=== PATIENT | female | born 1965 | race Caucasian/White ===

== ENCOUNTER 2017-01-11 15:13 | Observation (INO) | payer OTHER ==
--- NOTE | 2017-01-11 16:22 | CPEKG ---
Heart Rate: 42 RR Interval: 1429 P-R Interval: 172 QRSD Interval: 90 QT Interval: 472 QTC Interval: 395 P [place]: 49 QRS [place]: 8 T Wave [place]: 22 EKG Severity - OTHERWISE NORMAL ECG - EKG Impression: SINUS BRADYCARDIA Electronically Signed By: Davonte Mason 11-Jan-2017 23:12:34
--- NOTE | 2017-01-11 16:25 | EDPHY ---
H & P Stated Complaint: pt had a syncopeal episoide with LOC Time Seen by Provider: 01/11/17 16:23 HPI/ROS: CHIEF COMPLAINT: Loss of consciousness HISTORY OF PRESENT ILLNESS: The patient is a 51 y/o female complaining of loss of consciousness and a subsequent fall this afternoon. She had a witnessed syncopal episode in October, where she was unresponsive for about 30 seconds. Today she was at her daughter' s school and lost consciousness for about 5 seconds. She felt thirsty all day and went to get a drink of water; she immediately felt heart palpitations and then became unconscious. She then hit the floor face first and was unable to block her fall. Denies shortness of breath, headache, chest pain, numbness or other pertinent symptoms. She is very active in is actually swung the [employer] channel in 2009. She swims master class several times a week. Normally her heart rate runs low but is never been below 50. REVIEW OF SYSTEMS: A comprehensive 10 point review of systems is otherwise negative aside from elements mentioned in the history of present illness. PMH: Right ACL repair SOCIAL HISTORY: Lives in [place], retired, family at bedside PHYSICAL EXAM: Gen: Awake, Alert, No Distress HEENT: Nose: no rhinorrhea Eyes: Left eye abrasion, PERRLA, EOMI Mouth: Moist mucosa Neck: Supple, no JVD Chest: nontender, lungs clear to auscultation Heart: S1, S2 normal, no murmur Abd: Soft, non-tender, no guarding Back: no CVA tenderness, no midline tenderness Ext: no edema, non-tender Skin: no rash Neuro: CN II-XII intact, Sensation grossly intact, Strength 5/5 in bilateral upper and lower extremities - Personal History LMP (Females 10-55): Post Menopausal Current Tetanus Diphtheria and Acellular Pertussis (TDAP): Yes Tetanus Vaccine Date: 2011 - Medical/Surgical History Hx Asthma: No Hx Chronic Respiratory Disease: No Hx Diabetes: No Hx Cardiac Disease: No Hx Renal Disease: No Hx Cirrhosis: No Hx Alcoholism: No Hx HIV/AIDS: No Hx Splenectomy or Spleen Trauma: No Other PMH: , r acl surgery - Social History Smoking Status: Never smoked Constitutional: Initial Vital Signs Temperature (C) 36.7 C 01/11/17 15:20 Heart Rate 52 L 01/11/17 15:20 Respiratory Rate 20 10/06/17 15:20 Blood Pressure 142/71 H 01/11/17 15:20 O2 Sat (%) 99 01/11/17 15:20 O2 Delivery Mode Room Air Allergies/Adverse Reactions: No Known Allergies Allergy (Unverified 01/11/17 15:20) Home Medications: Medication Instructions Recorded Aspirin [Aspirin 81mg (*)] 81 mg PO HS 01/11/17 Herbals/Supplements -Info Only 1 ea PO DAILY 01/11/17 Multivitamins [Multivitamin (*)] 1 each PO DAILY 01/11/17 Medical Decision Making - Diagnostics Imaging Results: Imaging Impressions Chest X-Ray 01/11/17 16:53 Impression: Normal chest x-ray. Imaging: I viewed and interpreted images myself ED Course/Re-evaluation: The patient is a 51 y/o female presenting to the ED after a syncopal episode this afternoon. She had a similar syncopal episode in October 2016, but this episode lasted longer. While on the heart monitor, her heart rate is intermittently dropping from the mid 60's into the low 40's. The 12 lead EKG was interpreted by myself. See hard copy and/or "tracemaster" electronic copy for interpretation. 1739: Spoke with hospitalist service, accepts admission of this patient. The patient will be admitted for observation of her syncope and intermittent bradycardia. 1754: Consulted with Dr. Ontiveros, mold tooling technician, he accepts to consult on this patient. Reassessed patient and discussed plan for admission. Patient and her family are comfortable with this plan. - Data Points Laboratory Results: Laboratory Results 01/11/17 16:30 01/11/17 16:30 01/11/17 01/11/17 16:30 16:30 WBC 6.03 10^3/uL 10^3/uL (3.80-9.50) RBC 4.14 10^6/uL L 10^6/uL (4.18-5.33) Hgb 12.9 g/dL g/dL (12.6-16.3) Hct 37.9 % L % (38.0-47.0) MCV 91.5 fL fL (81.5-99.8) MCH 31.2 pg pg (27.9-34.1) MCHC 34.0 g/dL g/dL (32.4-36.7) RDW 12.3 % % (11.5-15.2) Plt Count 234 10^3/uL 10^3/uL (150-400) MPV 9.6 fL fL (8.7-11.7) Neut % (Auto) 64.3 % % (39.3-74.2) Lymph % (Auto) 23.1 % % (15.0-45.0) [place] % (Auto) 9.0 % % (4.5-13.0) Eos % (Auto) 2.8 % % (0.6-7.6) Baso % (Auto) 0.5 % % (0.3-1.7) Nucleat RBC Rel Count 0.0 % % (0.0-0.2) Absolute Neuts (auto) 3.88 10^3/uL 10^3/uL (1.70-6.50) Absolute Lymphs (auto) 1.39 10^3/uL 10^3/uL (1.00-3.00) Absolute Monos (auto) 0.54 10^3/uL 10^3/uL (0.30-0.80) Absolute Eos (auto) 0.17 10^3/uL 10^3/uL (0.03-0.40) Absolute Basos (auto) 0.03 10^3/uL 10^3/uL (0.02-0.10) Absolute Nucleated RBC 0.00 10^3/uL 10^3/uL (0-0.01) Immature Gran % 0.3 % % (0.0-1.1) Immature Gran # 0.02 10^3/uL 10^3/uL (0.00-0.10) Sodium 140 mEq/L mEq/L (134-144) Potassium 4.4 mEq/L mEq/L (3.5-5.2) Chloride 104 mEq/L mEq/L (97-110) Carbon Dioxide 24 mEq/l mEq/l (22-31) Anion Gap 12 mEq/L mEq/L (8-16) BUN 27 mg/dL H mg/dL (7-23) Creatinine 0.9 mg/dL mg/dL (0.6-1.0) Estimated GFR > 60 Glucose 82 mg/dL mg/dL (70-100) Calcium 9.9 mg/dL mg/dL (8.5-10.4) Troponin I < 0.012 ng/mL ng/mL (0.000-0.034) Departure - Departure Disposition: [facility] Inpatient Acute Clinical Impression: Bradycardia Syncope Qualifiers: Syncope type: vasovagal syncope Qualified Code(s): R55 - Syncope and collapse Condition: Fair Report Scribed for: Davonte Mason Report Scribed by: Sheela Barriga Date of Report: 01/11/17 Time of Report: 16:24
[2017-01-11 17:15] LABS: ANION GAP 12 mEq/L (8-16); CALCIUM 9.9 mg/dL (8.5-10.4); CARBON DIOXIDE 24 mEq/l (22-31); CHLORIDE 104 mEq/L (97-110); CREATININE 0.9 mg/dL (0.6-1.0); GLOMERULAR FILTRATION RATE > 60; GLUCOSE 82 mg/dL (70-100); POTASSIUM 4.4 mEq/L (3.5-5.2); SODIUM 140 mEq/L (134-144)
[2017-01-11 17:22] LABS: % IMMATURE GRANULYOCYTES 0.3 % (0.0-1.1); ABSOLUTE IMMATURE GRANULOCYTES 0.02 10^3/uL (0.00-0.10); ADD DIFF? NO; ADD MORPH? NO; ADD SCAN? NO; ATYPICAL LYMPHOCYTE FLAG 10 (0-99); FRAGMENT RBC FLAG 0 (0-99); HEMATOCRIT 37.9 % (38.0-47.0); HEMOGLOBIN 12.9 g/dL (12.6-16.3); LEFT SHIFT FLG 0 (0-99); LIPEMIA HEMOLYSIS FLAG 90 (0-99); MEAN CELL HEMOGLOBIN 31.2 pg (27.9-34.1); MEAN CELL VOLUME 91.5 fL (81.5-99.8); MEAN PLATELET VOLUME 9.6 fL (8.7-11.7); PLATELET CLUMPS FLAG 0 (0-99); PLATELET COUNT 234 10^3/uL (150-400); RED BLOOD CELL COUNT 4.14 10^6/uL (4.18-5.33); RED CELL DISTRIBUTION WIDTH 12.3 % (11.5-15.2)
[2017-01-11 17:25] LABS: TROPONIN I < 0.012 ng/mL (0.000-0.034)
[2017-01-11] MEDS ORDERED: ONDANSETRON DISINTEGRATING 4 MG TAB PO PRN (17:49)
[2017-01-11] MEDS ORDERED: ACETAMINOPHEN 325 MG TAB PO PRN (17:49)
[2017-01-11] MEDS ORDERED: ONDANSETRON 4 MG/2 ML VIAL IVP PRN (17:49)
--- NOTE | 2017-01-11 19:11 | PDGENHP ---
History and Physical - Chief Complaint syncope - History of Present Illness 51 yo female with previous history of syncope x1 in October 2016 presents to ED after another syncopal episode today. She was working at a [employer] and while walking out, she stopped for water. After taking a few sips, she felt a pulsating sensation in her chest. This radiated up toward her neck. She is not sure if she experienced palpitations, but she then blacked out and hit the ground. She injured her left eye. She denies preceding dizziness or lightheadedness. She did not feel chest pain or SOB. She had a similar event in October. After taking several gulps of lemonade, she felt palpitations that juan into her neck and she collapsed on the couch. She did not come to the ED at that time. She is very active, swimming long distances, runs marathons. She had a treadmill stress test about 10 yrs ago that was negative for ischemia. History Information - Allergies/Home Medication List Allergies/Adverse Reactions: No Known Allergies Allergy (Unverified 01/11/17 15:20) Home Medications: Aspirin [Aspirin 81mg (*)] 81 mg PO HS 01/11/17 [Last Taken 01/10/17] Herbals/Supplements -Info Only 1 ea PO DAILY 01/11/17 [Last Taken 01/10/17] Multivitamins [Multivitamin (*)] 1 each PO DAILY 01/11/17 [Last Taken 01/10/17] I have personally reviewed and updated: family history, medical history, social history, surgical history - Past Medical History no pertinent PMH - Surgical History Additional surgical history: x1, knee surgery - Family History Positive for: father with history of CAD younger than 55 Additional family history: dad age 64 of [place] - Social History Smoking Status: Never smoked Alcohol Use: Occasionally Drug Use: None Additional social history: 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 Review of Systems Review of Systems: ROS: 10pt was reviewed & negative except for what was stated in HPI & below Physical Exam Physical Exam: Temp Pulse Resp BP Pulse Ox 36.7 C 56 L 15 111/82 H 92 01/11/17 18:44 01/11/17 18:44 01/11/17 18:44 01/11/17 18:44 01/11/17 18:44 Constitutional: no apparent distress Eyes: PERRL Ears, Nose, Mouth, Throat: moist mucous membranes Cardiovascular: bradycardia Respiratory: no respiratory distress, clear to auscultation Gastrointestinal: normoactive bowel sounds, soft, non-tender abdomen Skin: warm Musculoskeletal: full muscle strength Neurologic: AAOx3 Psychiatric: interacting appropriately Lab Data & Imaging Review 01/11/17 16:30 01/11/17 16:30 WBC 6.03 10^3/uL (3.80-9.50) 01/11/17 16:30 RBC 4.14 10^6/uL (4.18-5.33) L 01/11/17 16:30 Hgb 12.9 g/dL (12.6-16.3) 01/11/17 16:30 Hct 37.9 % (38.0-47.0) L 01/11/17 16:30 MCV 91.5 fL (81.5-99.8) 01/11/17 16:30 MCH 31.2 pg (27.9-34.1) 01/11/17 16:30 MCHC 34.0 g/dL (32.4-36.7) 01/11/17 16:30 RDW 12.3 % (11.5-15.2) 01/11/17 16:30 Plt Count 234 10^3/uL (150-400) 01/11/17 16:30 MPV 9.6 fL (8.7-11.7) 01/11/17 16:30 Neut % (Auto) 64.3 % (39.3-74.2) 01/11/17 16:30 Lymph % (Auto) 23.1 % (15.0-45.0) 01/11/17 16:30 [place] % (Auto) 9.0 % (4.5-13.0) 01/11/17 16:30 Eos % (Auto) 2.8 % (0.6-7.6) 01/11/17 16:30 Baso % (Auto) 0.5 % (0.3-1.7) 01/11/17 16:30 Nucleat RBC Rel Count 0.0 % (0.0-0.2) 01/11/17 16:30 Absolute Neuts (auto) 3.88 10^3/uL (1.70-6.50) 01/11/17 16:30 Absolute Lymphs (auto) 1.39 10^3/uL (1.00-3.00) 01/11/17 16:30 Absolute Monos (auto) 0.54 10^3/uL (0.30-0.80) 01/11/17 16:30 Absolute Eos (auto) 0.17 10^3/uL (0.03-0.40) 01/11/17 16:30 Absolute Basos (auto) 0.03 10^3/uL (0.02-0.10) 01/11/17 16:30 Absolute Nucleated RBC 0.00 10^3/uL (0-0.01) 01/11/17 16:30 Immature Gran % 0.3 % (0.0-1.1) 01/11/17 16:30 Immature Gran # 0.02 10^3/uL (0.00-0.10) 01/11/17 16:30 Sodium 140 mEq/L (134-144) 01/11/17 16:30 Potassium 4.4 mEq/L (3.5-5.2) 01/11/17 16:30 Chloride 104 mEq/L (97-110) 01/11/17 16:30 Carbon Dioxide 24 mEq/l (22-31) 01/11/17 16:30 Anion Gap 12 mEq/L (8-16) 01/11/17 16:30 BUN 27 mg/dL (7-23) H 01/11/17 16:30 Creatinine 0.9 mg/dL (0.6-1.0) 01/11/17 16:30 Estimated GFR > 60 01/11/17 16:30 Glucose 82 mg/dL (70-100) 01/11/17 16:30 Calcium 9.9 mg/dL (8.5-10.4) 01/11/17 16:30 Troponin I < 0.012 ng/mL (0.000-0.034) 01/11/17 16:30 Visualized and Interpreted Chest x-ray results: Yes Chest X-Ray results: no infiltrate Visualized and Interpreted EKG results: Yes EKG additional interpertation: sinus bradycardia Assessment & Plan Assessment: Syncope Bradycardia Differential includes symptomatic bradycardia or other arrhythmia vs vasovagal syncope. Interesting that both syncopal episodes occurred after gulping a beverage. Consider if she might be stimulating her vagal nerve. She had some sinus pauses in the ED, which is worth noting. -Admit to PCU for telemetry to monitor for sinus pauses or symptomatic bradycardia -Check echo -Cardiology to consult in am -Consider prolonged outpt cardiac rehab nurse if no etiology is found DVT PPLX - low risk, SCD's Full code Dispo - obs
[2017-01-12 07:35] VITALS: RESP 12
[2017-01-12] MEDS ORDERED: FLUTICASONE NASAL 120 SPRAYS/16 GM MDI EACHNARE SCH (09:30)
--- NOTE | 2017-01-12 09:44 | GHP ---
[f rep st] HISTORY AND PHYSICAL DATE OF ADMISSION: 01/11/2017 CHIEF COMPLAINT: Syncope. HISTORY OF PRESENT ILLNESS: This is a 51-year-old, healthy female, who has had 2 episodes of syncope , one in October of this year and one yesterday. They both occurred after drinking water. She at both times experience some palpitations and had syncope, the one in October she did not come to medical atten tion. Yesterday, she came to the emergency room. Her EKG showed sinus bradycardia. Apparently, she has had a lifelong history of heart rates in the low 50s by her report. 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 She is, otherwise, h ealthy, taking only chronic aspirin, herbal supplements, and multivitamins, nothing new. She denies any dehydrating issues such as dysuria, or diarrhea, or other issues. She has no known history of th yroid issues. In the emergency room, she had heart rates in the high 40s and 50s. She was admitted for observation. Overnight she has had no significant arrhythmias other than sinus bradycardia. I h ad a long talk with her about our evaluation. By her history, it seems like a provocative vasovagal response, although she does have a chronically low heart rate. I would like to follow up with a 30 d ay outpatient monitoring. I do not suspect ACS. I did not hear murmurs on exam. An echocardiogram is pending, however. REVIEW OF SYSTEMS: Negative in a 10-point review of systems. ALLERGIES: She has no known allergies. MEDICATIONS: Aspirin, multivitamins. PAST MEDICAL HISTORY: Noncontributory. PAST SURGICAL HISTORY: She had section. FAMILY HISTORY: Father had early coronary vascular disease. SOCIALLY: She is a nonsmoker. She does not use illicit drugs. PHYSICAL EXAM: VITAL SIGNS: Blood pressure is 110/73, heart rate in the 50s and 60s, sinus. GENERAL : She is a middle-aged female, who has some bruising from her fall. She denies any headaches or oth er visual disturbances to me. NECK: Supple. LUNGS: Clear to auscultation. CARDIOVASCULAR: Regula r rate and rhythm. I could not hear murmurs, gallops, rubs. SKIN: There are no skin lesions. ABDO MEN: Soft, nontender. MUSCULOSKELETAL: 2+ pulses symmetrical. NEUROLOGICAL: She moves all extremi ties and has no neurologic complaints. ASSESSMENT AND PLAN: Probable vasovagal syncope with provocative issue being "golfing." This happen ed once in October and again here. She does have chronically low heart rate by her report. She had no significant arrhythmias on monitor overnight other than her sinus bradycardia. Her exam from a cardi ac standpoint is stable. Echocardiogram is pending. I would follow up with a 30-day monitor, which she can arrange. I think she can be discharged today. She will call our office in the next day to t his outpatient monitoring. If she feels any palpitations, I told her to sit down as quickly as terrie angulo. So she did not have any more falls, but at this point I suspect this is a vasovagal reaction, b ut need to follow up for arrhythmia. All her questions were answered. /[id number]/MODL
[2017-01-12 11:47] VITALS: BP 108/69; PULSE 50; TEMP 97.9; O2SAT 90
--- NOTE | 2017-01-12 12:01 | ECHO ---
[email or web address] [address] Main: [phone] Fax: Transthoracic Echocardiogram Name: SVETLANA CIFUENTES MR#: [id number] Study Date: 01/12/2017 Study Time: 10:33 AM Date of : 1965 Age: 51 year(s) Height: 170.2 cm (67 in.) Weight: 72.58 kg (160 lb.) BSA: 1.84 m2 Gender: Female Examination: Echo Indication: Bradycardia, Cardiac: syncope Image Quality: Contrast: Requested by: Keiry Kapoor BP: 110 mmHg/73 mmHg Heart Rate: Rhythm: Indication: Bradycardia, Cardiac: syncope Procedure Staff [facility] Care Technician: Colby Kimball Reading Physician: Tio Gates Requesting Provider: Conclusions: Normal global systolic LV function. EF is 76 %. Normal study Measurements: Chambers Valvular Assessment AV/MV Valvular Assessment TV/PV Normal Normal Normal Name Value Range Name Value Range Name Value Range Ao Ethel (MM): 2.8 cm (2.2 cm-3.7 AV Vmax: 1.30 m/s (1 m/s-1.7 PV Vmax: 1.11 m/s (0.6 m/s-0.9 cm) m/s) m/s) IVSd (2D): 0.9 cm (0.6 cm-1.1 AV maxP mmHg ( - ) PV PGmax: 5 mmHg ( - ) cm) LVOT Vmax: 0.98 m/s (0.7 m/s-1.1 LVDd (2D): 4.8 cm (3.9 cm-5.3 m/s) cm) MV E Vmax: 0.68 m/s ( - ) LVDs (2D): 2.7 cm (2.1 cm-4 MV A Vmax: 0.46 m/s ( - ) cm) MV E/A: 1.48 ( - ) LVPWd (2D): 0.9 cm ( - ) LVEF (2D): 76 (>=54 %) Continued Measurements: Chambers Valvular Assessment AV/MV Name Value Name Value LADs Lon.9 cm MV E/E' Septal: 9.70 LA Area: 13.4 cm2 MV E/E' Lateral: 9.60 Findings: Left Ventricle: Normal size left ventricle. No LV hypertrophy. Normal global systolic LV function. EF is 76 %. No Patient: SVETLANA CIFUENTES Study Date: 01/12/2017 Page 1 of 2 10:33 AM regional wall motion abnormality. Right Ventricle: Normal size right ventricle. Normal RV function. Left Atrium: The left atrium is normal in size. Right Atrium: The right atrium is normal in size. Mitral Valve: The mitral valve is normal in appearance and function. There is no mitral valve regurgitation. Aortic Valve: The aortic valve is normal in appearance and function. There is no aortic valve regurgitation. Tricuspid Valve: The tricuspid valve is normal in appearance and function. There is no tricuspid valve regurgitation. Pulmonic Valve: The pulmonic valve is normal in appearance and function. Aorta: The aorta is normal. Pericardium: No pericardial effusion. (No Signature Object) Patient: SVETLANA CIFUENTES Study Date: 01/12/2017 Page 2 of 2 10:33 AM D:_[id number]
--- NOTE | 2017-01-12 13:15 | GDS ---
[f rep st] DISCHARGE SUMMARY CHIEF COMPLAINT: Syncope. ALL DIAGNOSES: 1. Syncope, vasovagal versus arrhythmia. 2. Bradycardia. HOSPITAL COURSE: A 51-year-old, healthy female, presents with syncope. This is the second time in 3 months. She did describe the sensation of palpitations prior to this. In the emergency department, her heart rate was noted to drop into the 40s intermittently. She does swim in a master's class. S he was seen by Cardiology. Notably, she was monitored on telemetry with no arrhythmias. Her echocar diogram was normal. It is felt that this is most likely vasovagal. Would also have to consider tach ycardia, given her sensation of palpitations prior to the event. She will follow up with Cardiology. She will get a 30 day event monitor. Beyond this, she will follow up with Dr. Lopez. She is di scharged in stable condition and understands all of this. /[id number]/MODL
--- NOTE | 2017-01-12 15:14 | ASDISCHSUM ---
Discharge Information Plan Status:Home with No Needs Medically Cleared to Leave:01/12/2017 Discharge Date:01/12/2017 01:40 PM CM D/C Disposition:Home, Routine, Self-Care ADT D/C Disposition:Home, Routine, Self-Care Projected Discharge Date:01/12/2017 01:40 PM Transportation at D/C:Family Discharge Delay Reason: Follow-Up Date:01/12/2017 01:40 PM Discharge Slot: Final Diagnosis:Syncope r/t vasovagal vs arrhythmia, bradycardia Placement Information Patient Contact Information Contact Name:WILLIAM Relationship: Address:[address] Work Phone: [facility]:[place] Alternate Phone: [facility]/Zip Code:[place] [address] Email: Financial Information Financial Class:[facility] Primary Plan Desc:[facility] Primary Plan Number:[id number] Secondary Plan Desc: Secondary Plan Number: Assessment Information BC CM Progress Note CM Note CM Note Notes: Reviewed chart re: d/c poc, pt's progress. Pt admitted w/ syncope r/t vasovagal response vs arrhythmia, bradycardia. Pt is a master swimmer, w/ a hx of low HR. Pt to discharge home independently w/ family support and no identified needs. Cardiology rec 30 day Holter monitor study to further eval; f/u as directed. No IM signed, not applicable. CM avail for any further issues or concerns. Date Signed: 01/12/2017 03:14 PM Electronically Signed By:Aria Arteaga RN Intervention Information
[2017-01-12] MEDS ORDERED: ASPIRIN 81 MG CHEWABLE TAB PO SCH (21:00)
== END 2017-01-12 13:40 | disposition home or self-care (01) ==
LOC: F2W 18:37
PROVIDERS: ADMIT Hospitalist; ATTEND Hospitalist
DX: R55 Syncope and collapse (principal); R00.1 Bradycardia, unspecified
CPT/HCPCS: 71020; 93005; 93306; G0378

== ENCOUNTER → 2017-01-30 | Outpatient (CLI) | payer OTHER | LOC: FIMAGING 14:32 | PROVIDERS: ATTEND Obstetrics & Gynecology | DX: Z12.31 Encounter for screening mammogram for malignant neoplasm of breast (principal) | CPT/HCPCS: G0202 ==

== ENCOUNTER 2017-09-10 09:01 | Day surgery (SDC) | payer OTHER ==
--- NOTE | 2017-09-10 09:22 | PDGENHP ---
History & Physical Chief Complaint: CC: Dysphagia History of Present Illness: Dysphagia Pertinent Past, Social, Family History: negative Relevant Physical Exam: lungs clear. COR normal s1 s2
[2017-09-10] MEDS ORDERED: LR 1,000 ML IV ONE (09:41)
--- NOTE | 2017-09-10 10:28 | PDANEPAE ---
ANE Past Medical History - Cardiovascular History Hx Hypertension: No Hx Arrhythmias: No Hx Chest Pain: No Hx Coronary Artery / Peripheral Vascular Disease: No Hx CHF / Valvular Disease: No Hx Palpitations: No Cardiovascular History Comment: bradycardia- HR can go as low as 30's. syncope x2 when gulping cold water- hospitalized 01/2017. holter monitor. seen by [facility] in fall 2016. pcp has monitored HR as well - Pulmonary History Hx COPD: No Hx Asthma/Reactive Airway Disease: No Hx Recent Upper Respiratory Infection: No Hx Oxygen in Use at Home: No Hx Sleep Apnea: No Sleep Apnea Screening Result - Last Documented: Negative - Neurologic History Hx Cerebrovascular Accident: No Hx Seizures: No Hx Dementia: No Neurologic History Comment: syncope x2 in last year - Endocrine History Hx Diabetes: No - Renal History Hx Renal Disorders: No - Liver History Hx Hepatic Disorders: No - Neurological & Psychiatric Hx Hx Neurological and Psychiatric Disorders: No - Cancer History Hx Cancer: No - Congenital Disorder History Hx Congenital Disorders: No - GI History Hx Gastrointestinal Disorders: Yes Gastrointestinal History Comment: dysphagia. syncope after gulping cold liquids - Other Health History Other Health History: wears contacts- instructed pt to bring case and solution. dental implants - Chronic Pain History Chronic Pain: No - Surgical History Prior Surgeries: right acl/mcl repair 1989. 2005. d&c 2004 ANE Review of Systems Review of Systems: - Exercise capacity METS (RN): 6 METS ANE Patient History - Allergies Allergies/Adverse Reactions: No Known Allergies Allergy (Verified 09/09/17 16:28) - Home Medications Home Medications: Aspirin [Aspirin 81mg (*)] 01/11/17 [Last Taken 09/09/17] Herbals/Supplements -Info Only 01/11/17 [Last Taken 09/09/17] - NPO status NPO Since - Liquids (Date): 09/10/17 NPO Since - Liquids (Time): 07:00 NPO Since - Solids (Date): 09/09/17 NPO Since - Solids (Time): 08:00 - Smoking Hx Smoking Status: Never smoked - Family Anes Hx Family Hx Anesthesia Complications: none ANE Labs/Vital Signs - Vital Signs Blood Pressure: 118/63 Heart Rate: 50 Respiratory Rate: 16 O2 Sat (%): 96 Height: 170.18 cm Weight: 75.75 kg ANE Physical Exam - Airway Neck exam: FROM Mallampati Score: Class 1 Mouth exam: normal dental/mouth exam - Pulmonary Pulmonary: no respiratory distress - Cardiovascular Cardiovascular: regular rate and rhythym - ASA Status ASA Status: II ANE Anesthesia Plan Total IV Anesthesia: Yes
[2017-09-10] MEDS ORDERED: PROPOFOL/EMULSION 500 MG/50 ML BOTTLE IV ONE (10:29)
--- NOTE | 2017-09-10 10:49 | GIREPORT ---
[facility] - Endoscopy Department Patient Name: Elizabeth Hinton Procedure Date: 09/10/2017 10:32 AM Patient Type: Outpatient Attending MD/ ER Physician: Jer Valenzuela MD Procedure: Upper GI endoscopy Indications: Dysphagia, Suspected esophageal reflux, Episodes of vasovagal syncoope associated swallowing. Providers: Jer Valenzuela MD Medicines: General Anesthesia Complications: No immediate complications. Description of Procedure: After obtaining informed consent, the endoscope was passed under direct vision. Throughout the procedure, the patient's blood pressure, pulse, and oxygen saturations were monitored continuously. The Endoscope was intro duced through the mouth, and advanced to the second part of duodenum. The [facility] er GI endoscopy was accomplished without difficulty. The patient tolerated th e procedure well. Findings: The examined esophagus was normal. Biopsies were taken with a cold for eps for histology. A guidewire was placed and the scope was withdrawn. Dila tion was performed with a Savary dilator with no resistance at 54 Fr. The entire examined stomach was normal. Biopsies were taken with a cold forceps for histology. The examined duodenum was normal. Estimated Blood Loss: Estimated blood loss: none. Post Op Diagnosis: - Normal esophagus. Biopsied. Dilated. - Normal stomach. Biopsied. - Normal examined duodenum. Recommendation: - Await pathology results. - Perform a colonoscopy today. - Thank you for allowing me to participate in the care of your patient. Attending Participation: I personally performed the entire procedure. Jer Valenzuela MD Jer Valenzuela MD 09/10/2017 10:49:05 AM This report has been signed electronicallySthowie Valenzuela MD Number of Addenda: 0 Note Initiated On: 09/10/2017 10:32 AM [email or web address]
--- NOTE | 2017-09-10 11:06 | GIREPORT ---
[facility] Surgical Services - Endoscopy Department Patient Name: Elizabeth Hinton Procedure Date: 09/10/2017 10:47 AM Patient Type: Outpatient Attending MD/ ER Physician: Jer Valenzuela MD Procedure: Colonoscopy Indications: Screening for colorectal malignant neoplasm Providers: Jer Valenzuela MD Medicines: General Anesthesia, Propofol per Anesthesia Complications: No immediate complications. Description of Procedure: After obtaining informed consent, the scope was passed under direct vis ion. Throughout the procedure, the patient's blood pressure, pulse, and oxyg en saturations were monitored continuously. The Colonoscope with irrigatio n channel was introduced through the anus and advanced to the cecum, identified by appendiceal orifice and ileocecal valve. The colonoscopy was performed without difficulty. The patient tolerated the procedure well. The quality of the bowel preparation was good. The ileocecal valve, appendi ceal orifice, and rectum were photographed. Findings: A 3 mm polyp was found in the sigmoid colon. The polyp was sessile. The polyp was removed with a cold biopsy forceps. Resection and retrieval w ere complete. The exam was otherwise without abnormality on direct and retroflexion v iews. Estimated Blood Loss: Estimated blood loss: none. Post Op Diagnosis: - One 3 mm polyp in the sigmoid colon, removed with a cold biopsy force ps. Resected and retrieved. - The examination was otherwise normal on direct and retroflexion views . Recommendation: - Patient has a contact number available for emergencies. The signs and symptoms of potential delayed complications were discussed with the pat ient. Return to normal activities tomorrow. Written discharge instructions we re provided to the patient. - Resume regular diet. - Continue present medications. - Await pathology results. - Repeat colonoscopy for surveillance based on pathology results. - If the pathology report reveals adenomatous tissue, then repeat the colonoscopy for surveillance in 5 years. - If the pathology report indicates hyperplastic polyp, then repeat colonoscopy for screening purposes in 10 years. - Thank you for allowing me to participate in the care of your patient. Attending Participation: I personally performed the entire procedure. Jer Valenzuela MD Jer Valenzuela MD 09/10/2017 11:05:40 AM This report has been signed electronicallyJer Valenzuela MD Number of Addenda: 0 Note Initiated On: 09/10/2017 10:47 AM Total Procedure Duration Time 0 hours 11 minutes 14 seconds [email or web address]
[2017-09-10] MEDS ORDERED: ALBUTEROL 3 ML DEYVIAL IH PRN (11:09)
[2017-09-10] MEDS ORDERED: NALOXONE HCL 0.4 MG/ML INJ IVP PRN (11:09)
[2017-09-10] MEDS ORDERED: GLYCOPYRROLATE 0.2 MG/1 ML VIAL IVP PRN (11:10)
--- NOTE | 2017-09-10 11:11 | POSTANESTH ---
Post Anesthetic Evaluation Cardiovascular Status: Similar to Pre-Op Cond Respiratory Status: Similar to Pre-op Cond. Level of Consciousness/Mental Status: Mildly Sleepy, Arousable Pain Control: Adequate, Prn Tx Ordered Nausea/Vomiting Control: Adequate, Prn Tx Ordered Complications Possibly Related to Anesthesia: None Noted
[2017-09-10 12:18] VITALS: BP 99/84
== END 2017-09-10 12:16 | disposition home or self-care (01) ==
LOC: FSGY 09:01
PROVIDERS: ATTEND Internal Medicine Gastroenterology
PROC: 0DB68ZX Excision of Stomach, Via Natural or Artificial Opening Endoscopic, Diagnostic (ICD-10-PCS; principal; 2017-09-10 10:00)
PROC: 0D758ZZ Dilation of Esophagus, Via Natural or Artificial Opening Endoscopic (ICD-10-PCS; principal; 2017-09-10 10:00)
PROC: 0DBN8ZX Excision of Sigmoid Colon, Via Natural or Artificial Opening Endoscopic, Diagnostic (ICD-10-PCS; principal; 2017-09-10 10:00)
PROC: 0DB58ZX Excision of Esophagus, Via Natural or Artificial Opening Endoscopic, Diagnostic (ICD-10-PCS; principal; 2017-09-10 10:00)
DX: Z12.11 Encounter for screening for malignant neoplasm of colon (principal); K63.5 Polyp of colon; R13.10 Dysphagia, unspecified; R55 Syncope and collapse; R00.1 Bradycardia, unspecified; Z88.0 Allergy status to penicillin
CPT/HCPCS: J2704